=== PATIENT | male | born 1995 | race Caucasian/White ===

== ENCOUNTER 2022-01-11 16:50 | Emergency (ER) | payer BC ==
[2022-01-11] MEDS ORDERED: Sodium Chloride 0.9% 10 ML Syringe FLUSH PRN (17:24)
[2022-01-11] MEDS ORDERED: Ondansetron 4 MG/2 ML SDV IVPUSH ONE (17:26)
[2022-01-11] MEDS: Sodium Chloride 0.9% 1,000 ML IV SCH ×2 (17:37→18:42)
[2022-01-11] MEDS ORDERED: Iopamidol 755 Mg/ML 100 ML Bottle IV ONE (18:20)
[2022-01-11] MEDS ORDERED: Pantoprazole 40 MG Vial IVPUSH ONE (19:24)
== END 2022-01-11 19:54 | disposition home or self-care (01) ==
LOC: FB.ED 16:50
DX: K29.00 Acute gastritis without bleeding (principal); Z88.0 Allergy status to penicillin
CPT/HCPCS: 36415; 74177; 81001; 83605; 83690; 85025; 86140; 96361; 96374; 96375; 99284-25; C9113; J2405; J7030; Q9967